=== PATIENT | male | born 2000 | race Hispanic/Latino ===

== ENCOUNTER 2021-02-15 19:00 | Emergency (ER) | payer OTHER, SELFPAY ==
--- NOTE | ~2021-02-15 | CT_ITS ---
EXAMINATION: CTA chest PE protocol EXAM DATE: 02/15/2021 20:39 INDICATION: Dyspnea and covid + TECHNIQUE: Spiral CTA of the chest (pulmonary arteries) was performed with 100 cc Omnipaque 350 intr avenous contrast injection. Images were acquired during the pulmonary arterial phase. Coronal maxi mum intensity projection 3D-reconstructions were created by the technologist on dedicated workstation . Axial, coronal and sagittal reformatted images were reviewed. The dose-length product (DLP) for t his examination was 836.50 mGy-cm. The exposure was tailored according to patient size (auto mA exp osure control), and iterative reconstruction (ASIR) was used as additional dose reduction technique. There is no prior study for comparison. FINDINGS: Pulmonary arteries are well opacified and without intraluminal filling defects. No thora cic aortic dissection. Moderate amount of right basilar, small to moderate amount of left basilar ai rspace disease, appearance consistent with COVID pneumonia. There are no pleural or pericardial effu sions. Tracheobronchial tree is patent. Prevascular lymph node which is mildly enlarged, likely r eactive. There is no pneumothorax. Heart normal in size. No evidence of coronary arterial calcif ication. Upper abdomen is unremarkable. The bones are unremarkable. IMPRESSION: 1. Moderate right, small to moderate left COVID pneumonia. 2. No pulmonary emboli. Reviewed, dictated and finalized at location A.
--- NOTE | ~2021-02-15 | XR_ITS ---
EXAMINATION: XR chest 1V portable EXAM DATE: 02/15/2021 19:35 INDICATION: SOB, COUGH, COVID + TECHNIQUE: Portable AP frontal chest x-ray was obtained. There is no prior study for comparison. FINDINGS: Patchy ill-defined bibasilar acute airspace disease, probably COVID pneumonia given history provided. No pneumothorax or pleural effusion. Cardiomediastinal silhouette is normal. There are no osseous abnormalities identified. IMPRESSION: Patchy ill-defined basilar COVID pneumonia. Reviewed, dictated and finalized at location A.
[2021-02-15 19:10] VITALS: BP 123/85; PULSE 113; RESP 18; TEMP 36.1; O2SAT 95
[2021-02-15 19:17] VITALS: BP 122/99; PULSE 100; RESP 28; O2SAT 96
[2021-02-15 19:34] LABS: Basophils Percent Auto 0.2 % (0.2-1.2); Eosinophils Absolute Auto 0.1 K/mm3 (0-0.3); Eosinophils Percent Auto 1.9 % (0-4.4); Hematocrit 50.6 % (42.0-52.0); Hemoglobin 17.1 g/dL (14.0-18.0); Immature Granulocyte Absolute 0.05 K/mm3 (0.00-0.031); Immature Granulocyte Percent A 0.8 % (0-0.5); Lymphocytes Absolute Auto 1.94 K/mm3 (0.9-3.2); Lymphocytes Percent Auto 31.1 % (18.3-44.2); Mean Corpuscular HGB Conc 33.8 g/dl (32-36); Mean Corpuscular Hemoglobin 29.3 pg (26-34); Mean Corpuscular Volume 86.6 fl (80-100); Mean Platelet Volume 11.2 fl (7.4-10.4); Monocytes Absolute Auto 0.8 K/mm3 (0.1-0.6); Monocytes Percent Auto 12.4 % (2.6-8.5); Neutrophils Absolute Auto 3.3 K/mm3 (1.3-6.7); Neutrophils Percent Auto 53.6 % (45.5-73.1); Platelet Count Result 189 k/mm3 (150-375); Red Blood Count 5.84 M/mm3 (4.6-6.20); Red Cell Distribution Width 12.9 % (11.5-14.5); White Blood Count 6.2 K/mm3 (4.5-10.0)
[2021-02-15 19:44] LABS: Alanine Aminotransferase 100 U/L (4-50); Albumin Level 4.5 g/dL (3.5-5.1); Alkaline Phosphatase 56 U/L (38-126); Anion Gap 10 mmol/L (8-16); Aspartate Amino Transferase 115 U/L (17-59); Bilirubin,Total 0.5 mg/dL (0.2-1.3); Blood Urea Nitrogen 10 mg/dL (9-20); Calcium 9.4 mg/dL (8.4-10.2); Carbon Dioxide 30 mmol/L (22-30); Chloride 101 mmol/L (98-107); Estimated Glomerular Filt Rate > 60; Glucose 107 mg/dL (65-110); Potassium 3.8 mmol/L (3.4-5.0); Sodium 141 mmol/L (137-145)
[2021-02-15 19:48] LABS: D Dimer 0.55 ug/mL (<0.48)
--- NOTE | 2021-02-15 19:55 | ECG_ITS ---
Measurements Intervals [place] Rate: 86 P: 44 DE: 148 QRS: 28 QRSD: 91 T: -10 QT: 352 QTc: 423 Interpretive Statements SINUS RHYTHM BORDERLINE ST-T WAVE ABNORMALITY- INFERIOR LEADS BASELINE ARTIFACT- I, II, III, AVR, AVL, AVF, V1-V6 BORDERLINE ECG Electronically Signed On 02-16-2021 6:20:42 CDT by Juan C Erwin D.O.
--- NOTE | 2021-02-15 19:55 | ED.SOB ---
HPI - SOB/Dyspnea General Chief Complaint: Shortness of Breath/Dyspnea Stated Complaint: covid+, sob Time Seen by Provider: 02/15/21 19:15 Source: RN notes reviewed History of Present Illness HPI Narrative: Patient presents to emergency department from home for shortness of breath. Patient states he tested positive for COVID-19 approximately 1 week ago. States he did not receive the vaccination. States over the past few days has been feeling more short of breath that is worse when he has coughing spells. He states when he sitting at rest he does not feel short of breath he denies any fevers or chills, chest pain abdominal pain nausea vomiting or any other symptoms. Denies tobacco use Review of Systems Review of Systems: Narrative: Gen.: Denies fevers or chills ENT: Denies congestion Respiratory: See HPI CV: Denies chest pain or palpitations GI: Denies abdominal pain nausea, emesis or diarrhea Musculoskeletal: Denies back pain or muscle pain Neuro: Denies numbness, tingling, weakness or focal weakness Skin: Denies rash Except as documented, all other systems reviewed and negative [facility] Past Medical History Medical History (Updated 02/15/21 @ 23:46 by Scot Aggarwal DO) COVID-19 Social History Social History (Updated 02/15/21 @ 19:56 by Scot Aggarwal DO) Smoking status: Never smoker Exam Narrative: Exam Narrative: APPEARANCE: No acute distress, nontoxic, resting in bed EYES: EOMI HEENT: Normocephalic, atraumatic, OMM RESPIRATORY: No respiratory distress Clear to auscultation bilaterally with no rhonchi wheezing or rales. CARDIOVASCULAR: Regular rate and rhythm without murmurs rubs or gallops. ABDOMINAL: Soft, nontender, nondistended, no rebound or guarding MUSCULOSKELETAl: Moves all extremities. No clubbing, cyanosis or edema. NEURO: Awake and alert. Following commands, speech normal, no focal deficits SKIN:: Warm, dry. No rashes lesions or abrasions PSYCHIATRIC: Normal affect/mood, Course Course Emergency Course: Patient is remained stable throughout stay in ED pulse ox levels have remained in the mid 90s the patient did have a walking pulse ox test in the not go down below 94 percent Discussed with patient results of workup and diagnosis. Discussed need for follow-up with primary care, proper use of medication, and reasons to return to the emergency department. Patient understands and agrees to current treatment plan Vital Signs Vital signs: Vital Signs Temperature 97.0 F L 02/15/21 19:10 Pulse Rate 113 H 02/15/21 19:10 Respiratory Rate 18 02/15/21 19:10 Blood Pressure 123/85 02/15/21 19:10 Pulse Oximetry 95 02/15/21 19:10 Temperature 97.0 F L 02/15/21 19:10 Pulse Rate 88 02/15/21 21:57 Respiratory Rate 26 H 02/15/21 21:57 Blood Pressure 113/64 02/15/21 21:57 Pulse Oximetry 96 02/15/21 21:57 MDM - SOB/Dyspnea Lab Data Result diagrams: 02/15/21 19:26 02/15/21 19:26 Labs: Lab Results 02/15/21 02/15/21 02/15/21 Range/Units 19:26 19:26 19:26 WBC 6.2 (4.5-10.0) K/mm3 RBC 5.84 (4.6-6.20) M/mm3 Hgb 17.1 (14.0-18.0) g/dL Hct 50.6 (42.0-52.0) % MCV 86.6 (80-100) fl MCH 29.3 (26-34) pg MCHC 33.8 (32-36) g/dl RDW 12.9 (11.5-14.5) % Plt Count 189 (150-375) k/mm3 MPV 11.2 H (7.4-10.4) fl Immature Gran % (Auto) 0.8 H (0-0.5) % Neut % (Auto) 53.6 (45.5-73.1) % Lymph % (Auto) 31.1 (18.3-44.2) % [place] % (Auto) 12.4 H (2.6-8.5) % Eos % (Auto) 1.9 (0-4.4) % Baso % (Auto) 0.2 (0.2-1.2) % Lymph # (Auto) 1.94 (0.9-3.2) K/mm3 [place] # (Auto) 0.8 H (0.1-0.6) K/mm3 Eos # (Auto) 0.1 (0-0.3) K/mm3 Baso # (Auto) 0.0 (0.0-0.1) K/mm3 Abs Immat Gran (auto) 0.05 H (0.00-0.031) K/mm3 Absolute Neuts (auto) 3.3 (1.3-6.7) K/mm3 Absolute Nucleated RBC 0.0 (0.0-0.012) K/mm3 Nucleated RBC % 0.0 (0.0-0.2) % D-Dimer 0.55 H (<0.48) ug/mL [place]
[2021-02-15 21:57] VITALS: BP 113/64; PULSE 88; RESP 26; O2SAT 96
[2021-02-15] MEDS: ALBUTEROL SULFATE (*SP) AEROSOL 1 PUFF 2 PUFF INHALATION (22:58)
[2021-02-16 01:12] VITALS: BP 110/62; PULSE 87; RESP 26; O2SAT 100
== END 2021-02-16 01:12 | disposition home or self-care (01) ==
PROVIDERS: Emergency Provider Emergency Medicine
DX: U07.1 COVID-19 (principal); J12.82 Pneumonia due to coronavirus disease 2019; R94.31 Abnormal electrocardiogram [ECG] [EKG]
CPT/HCPCS: 36415; 71045; 71275; 80053; 85025; 85380; 93005; 99284; A9270; Q9967

== ENCOUNTER 2022-06-05 16:21 | Emergency (ER) | payer OTHER, SELFPAY ==
[2022-06-05 16:31] VITALS: BP 139/91; PULSE 86; RESP 16; TEMP 36.6; O2SAT 99
--- NOTE | 2022-06-05 17:15 | ED.URI ---
HPI - URI/Sore Throat General Chief Complaint: Upper Respiratory Infection Stated Complaint: Fever, Sore Throat Time Seen by Provider: 06/05/22 17:15 History of Present Illness HPI Narrative: 21-year-old male presented for complaint of sore throat and mouth pain with sore gums for 3 days. Endorses about 1 week ago he had viral symptoms including sore throat, malaise, fever and body aches. He took Tylenol cold medicine that time. He endorses his partner has a cold sore present. He has not applied anything to the site or taken anything for symptoms. Denies known HSV infection. Denies other lesion to body. Related Data Allergies Allergy/AdvReac Type Severity Reaction Status Date / Time No Known Allergies Allergy Verified 06/05/22 17:02 Review of Systems Review of Systems: CONSTITUTIONAL: Denies body aches, fever, chills, or sweats. EYES: Denies visual changes, redness, or discharge. ENT: reports mouth pain Denies rhinorrhea, congestion, or otalgia. CARDIOVASCULAR: Denies chest pain, palpitations, or edema. RESPIRATORY: Denies dyspnea. GASTROINTESTINAL: Denies abdominal pain, nausea, vomiting, or diarrhea. SKIN: Denies rash, itching, or wounds. MUSCULOSKELETAL: Denies back pain, joint pain, or myalgia. NEUROLOGIC: Denies headache PMFSH Past Medical History Medical History COVID-19 Social History Social History Smoking status: Never smoker Exam Narrative: GENERAL: well-appearing EYES: conjunctivae clear ENT: Mucous membranes moist. Oropharynx erythematous with tenderness to hard palate and gums c/w gingivostomatitis; vesicular lesion to the left angle of mouth without active drainage c/w HSV. No drooling, no hoarseness, no trismus, uvula midline. No tripod positioning, hot potato voice, or soft palate swelling. NECK: Supple. No lymphadenopathy CHEST: Clear to auscultation, breath sounds equal. HEART: Regular rate and rhythm. No murmur heard. SKIN: Warm, dry, no rash. Course Course Emergency Course: Patient is aware of diagnosis, understands and agrees to treatment plan. Anticipatory guidance given. Patient agrees to follow-up as directed and is aware of reasons to seek care at the emergency department. Portions of this record may have been created with voice recognition software Level of Care: Express Care Visit Vital Signs Vital signs: Vital Signs Temperature 97.8 F 06/05/22 16:31 Pulse Rate 86 06/05/22 16:31 Respiratory Rate 16 06/05/22 16:31 Blood Pressure 139/91 H 06/05/22 16:31 Pulse Oximetry 99 06/05/22 16:31 Oxygen Delivery Room Air 06/05/22 16:31 Temperature 97.8 F 06/05/22 16:31 Pulse Rate 86 06/05/22 16:31 Respiratory Rate 16 06/05/22 16:31 Blood Pressure 139/91 H 06/05/22 16:31 Pulse Oximetry 99 06/05/22 16:31 Oxygen Delivery Room Air 06/05/22 16:31 MDM - URI/Sore Throat MDM Narrative Medical decision making narrative: strep result reviewed with pt. Advise supportive treatments. Discussed HSV 1&2 at length. Rx valacyclovir and viscous lidocaine. Patient is appropriate for outpatient treatment and follow-up. Differential Diagnosis Differential diagnosis: Likely upper respiratory infection, viral infection and pharyngitis Lab Data Labs: Strep Screen Presumptive Negative *(Reference Range: Negative)* Discharge Plan Discharge Clinical Impression: Acute pain of mouth Patient Disposition: Home, Self-Care Condition: Stable Instructions: Oral Herpes Simplex Virus Infections (ED) Additional Instructions: Take medication as directed Keep skin clean and dry Tylenol and ibuprofen as needed for pain Avoid skin contact with others especially when a sore is present Follow up with your primary care provider in 1 week Go to the ER for worsening symptoms o
== END 2022-06-05 17:36 | disposition home or self-care (01) ==
PROVIDERS: Emergency Provider Nurse Practitioner Family
DX: K13.79 Other lesions of oral mucosa (principal); Z86.16 Personal history of COVID-19
CPT/HCPCS: 87081; 87880; 99213; G0463